=== PATIENT | male | born 1965 | race African-American/Black ===

== ENCOUNTER 2021-05-04 12:12 | Emergency (ER) | payer OTHER ==
[2021-05-04 12:35] VITALS: TEMP 98; BMI 27.0
[2021-05-04 13:43] LABS: BASO % 0.7 % (0-2.0); EOS % 2.3 % (0-4.5); HEMATOCRIT 41.8 % (35.4-49); HEMOGLOBIN 13.2 GM/dL (11.7-16.9); LYMPH % 24.4 % (8-40); MCH 26.5 pg (25.7-33.7); MCHC 31.6 g/dl (32.0-35.9); MEAN CELL VOLUME 83.9 fl (80-96); MEAN PLT VOLUME 7.3 fl (7.5-11.1); NEUT % 65.6 % (42.8-82.8); PLATELET COUNT 187 10^3/uL (134-434); RBC 4.99 M/mm3 (4.00-5.60); RDW 15.4 % (11.9-15.9); WHITE BLOOD COUNT 8.6 K/mm3 (4.0-10.0)
[2021-05-04 13:50] LABS: INR 1.29 (0.83-1.09); PROTHROMBIN TIME (PATIENT) 14.5 SEC (9.7-13.0)
[2021-05-04 14:04] LABS: CHLORIDE 112 mmol/L (98-107); SODIUM 144 mmol/L (136-145)
[2021-05-04 14:05] LABS: CALCIUM 8.9 mg/dL (8.5-10.1)
[2021-05-04 14:06] LABS: ALBUMIN 3.3 g/dl (3.4-5.0); BLOOD UREA NITROGEN 17.7 mg/dL (7-18); LIPASE 104 U/L (73-393)
[2021-05-04 14:07] LABS: GLUCOSE,RANDOM 99 mg/dL (74-106)
[2021-05-04 14:09] LABS: CREATININE 1.2 mg/dL (0.55-1.3); SGOT/AST 24 U/L (15-37); SGPT/ALT 26 U/L (13-61)
[2021-05-04 14:10] LABS: BILIRUBIN,TOTAL 1.2 mg/dL (0.2-1)
[2021-05-04 14:12] LABS: ALK PHOS 105 U/L (45-117)
[2021-05-04 14:31] VITALS: BP 168/90; PULSE 60
[2021-05-04 14:36] LABS: ANION GAP 2 MMOL/L (8-16); CO2 30 mmol/L (21-32)
== END 2021-05-04 15:39 | disposition home or self-care (01) ==
LOC: JER 12:12
DX: I10 Essential (primary) hypertension (principal)
CPT/HCPCS: 36415; 71046-TC-FY; 80053; 82550; 82553; 83690; 84484; 85025; 85610; 93005; 93010; 99285-25

== ENCOUNTER 2022-01-26 18:59 | Inpatient (IN) | payer OTHER ==
[2022-01-26 19:11] VITALS: BMI 27.1
[2022-01-26] MEDS ORDERED: ACETAMINOPHEN 1000 MG/100 ML BAG IVPB ONE (22:29)
[2022-01-26] MEDS ORDERED: VANCOMYCIN 1 GM in D5W (PRE-DOCKED) 1,000 MG/250 ML IVPB ONE (22:33)
[2022-01-26] MEDS ORDERED: PIPERACILLIN/TAZOB 4.5 GM 4.5 GM in DEXTROSE 5%-WATER 100 ML IVPB ONE (22:33)
[2022-01-26] MEDS ORDERED: ACETAMINOPHEN INJECTION 100 ML IVPB ONE (22:44)
[2022-01-26] MEDS ORDERED: PIPERACILLIN/TAZOB 4.5 GM 4.5 GM/100 ML BAG IVPB ONE (22:44)
[2022-01-26] MEDS ORDERED: VANCOMYCIN/WATER FOR INJ (PEG) 1,000 MG/200 ML BAG IVPB ONE (22:44)
[2022-01-26 22:45] LABS: VENOUS BASE EXCESS -0.8 mmol/L (-2-2); VENOUS O2 SATURATION 56.7 % (70-80); VENOUS PCO2 40.9 mmHg (38-52); VENOUS PH 7.389 (7.310-7.410)
[2022-01-26 22:48] LABS: BASO % 0.4 % (0-2.0); EOS % 0.2 % (0-4.5); HEMATOCRIT 34.5 % (35.4-49); HEMOGLOBIN 11.5 GM/dL (11.7-16.9); MCH 28.2 pg (25.7-33.7); MCHC 33.4 g/dl (32.0-35.9); MEAN CELL VOLUME 84.4 fl (80-96); MONO % 16.5 % (3.8-10.2); NEUT % 63.9 % (42.8-82.8); PLATELET COUNT 151 10^3/uL (134-434); RBC 4.09 M/mm3 (4.00-5.60); RDW 13.9 % (11.9-15.9); WHITE BLOOD COUNT 5.4 K/mm3 (4.0-10.0)
[2022-01-26 22:56] LABS: INR 1.34 (0.83-1.09); PROTHROMBIN TIME (PATIENT) 15.4 SEC (9.7-13.0)
[2022-01-26 23:11] LABS: CALCIUM 8.5 mg/dL (8.5-10.1)
[2022-01-26 23:12] LABS: ALBUMIN 3.5 g/dl (3.4-5.0); BLOOD UREA NITROGEN 28.4 mg/dL (7-18)
[2022-01-26 23:15] LABS: CREATININE 1.6 mg/dL (0.55-1.3)
[2022-01-26 23:17] LABS: BILIRUBIN,TOTAL 1.1 mg/dL (0.2-1); TOT PROT 6.8 g/dl (6.4-8.2)
[2022-01-27] MEDS ORDERED: POTASSIUM CHLORIDE TABS 20 MEQ TABLET.ER (FP) PO ONE ×2 (00:04→02:09)
[2022-01-27] MEDS ORDERED: ASPIRIN 81 MG CHEWABLE TABLETS PO ONE (00:06)
[2022-01-27] MEDS ORDERED: ASPIRIN 81 MG CHEWABLE TABLETS ONE (02:10)
[2022-01-27 03:08] LABS: EPI CELLS 1 /uL (0-25.1); HYALINE CASTS 0 /uL (0-3.1); PH,URINE 5.5 (5.0-8.0); URINE APPEARANCE CLEAR; URINE BACTERIA 4 /uL (0-1359); URINE BILIRUBIN NEGATIVE (NEGATIVE); URINE COLOR YELLOW; URINE GLUCOSE (UA) NEGATIVE (NEGATIVE); URINE KETONE NEGATIVE (NEGATIVE); URINE LEUK ESTERASE NEGATIVE (NEGATIVE); URINE NITRITE NEGATIVE (NEGATIVE); URINE PROTEIN NEGATIVE (NEGATIVE); URINE RBC 240 /uL (0-23.9); URINE UROBILINOGEN 0.2 mg/dL (0.2-1.0); URINE WBC 4 /uL (0-25.8)
[2022-01-27 06:20] LABS: BILIRUBIN,DIRECT 0.3 mg/dL (0.0-0.2)
[2022-01-27] MEDS ORDERED: THIAMINE HCL 200 MG/2 ML VIAL IVPB ONE (06:43)
[2022-01-27] MEDS ORDERED: GABAPENTIN 100 MG CAPSULE ONE ×3 (06:56→21:47)
[2022-01-27] MEDS ORDERED: THIAMINE HCL 200 MG/2 ML VIAL ONE (06:56)
[2022-01-27] MEDS: GABAPENTIN 100 MG CAPSULE PO SCH ×3 (06:58→21:54)
[2022-01-27 08:12] LABS: HEMATOCRIT 33.2 % (35.4-49); MCH 28.4 pg (25.7-33.7); MCHC 33.1 g/dl (32.0-35.9); MEAN CELL VOLUME 85.7 fl (80-96); MEAN PLT VOLUME 7.6 fl (7.5-11.1); PLATELET COUNT 142 10^3/uL (134-434); RBC 3.87 M/mm3 (4.00-5.60); RDW 14.2 % (11.9-15.9)
[2022-01-27 09:10] LABS: CALCIUM 8.3 mg/dL (8.5-10.1)
[2022-01-27 09:11] LABS: ALBUMIN 3.1 g/dl (3.4-5.0); MAGNESIUM 1.8 mg/dL (1.8-2.4)
[2022-01-27 09:14] LABS: CREATININE 1.7 mg/dL (0.55-1.3)
[2022-01-27 09:15] LABS: BILIRUBIN,TOTAL 1.3 mg/dL (0.2-1); TOT PROT 6.1 g/dl (6.4-8.2)
[2022-01-27] MEDS ORDERED: POLYETHYLENE GLYCOL (HEALTHYLAX) 3350 17 GM PACKET ONE (09:56)
[2022-01-27] MEDS ORDERED: PANTOPRAZOLE 40 MG TABLET PO ONE (09:57)
[2022-01-27] MEDS ORDERED: APIXABAN 5 MG TABLET ONE ×2 (09:57→21:46)
[2022-01-27] MEDS ORDERED: FOLIC ACID 1 MG TABLET (FP) ONE (09:57)
[2022-01-27] MEDS ORDERED: CHOLECALCIFEROL (VIT D3) 1,000 UNIT (25 MCG) TABLET ONE (09:57)
[2022-01-27] MEDS ORDERED: LOSARTAN POTASSIUM 50 MG TABLET PO SCH (10:00)
[2022-01-27] MEDS ORDERED: HYDROCHLOROTHIAZIDE 25 MG TABLET (FP) PO SCH (10:00)
[2022-01-27] MEDS ORDERED: amLODIPine BESYLATE 10 MG TABLET (FP) PO SCH (10:00)
[2022-01-27] MEDS ORDERED: ACETAMINOPHEN INJECTION 100 ML IVPB ONE (10:40)
[2022-01-27] MEDS ORDERED: FOLIC ACID INJECTION - 1 MG, THIAMINE HCL 100 MG, MULTIVIT INJECTION ADULT 10 ML in SOD... IVPB ONE (10:45)
[2022-01-27] MEDS: MULTIVIT-MINERALS ORAL LIQUID PO SCH (10:50)
[2022-01-27] MEDS: APIXABAN 5 MG TABLET PO SCH ×2 (10:51→21:54)
[2022-01-27] MEDS: PANTOPRAZOLE 40 MG TABLET PO SCH (10:51)
[2022-01-27] MEDS: POLYETHYLENE GLYCOL (HEALTHYLAX) 3350 17 GM PACKET PO SCH (10:51)
[2022-01-27] MEDS: CHOLECALCIFEROL (VIT D3) 1,000 UNIT (25 MCG) TABLET PO SCH (10:51)
[2022-01-27] MEDS: FOLIC ACID 1 MG TABLET (FP) PO SCH (10:51)
[2022-01-27] MEDS: ACETAMINOPHEN 1000 MG/100 ML BAG IVPB PRN (10:55)
[2022-01-27] MEDS ORDERED: DOCUSATE SODIUM 100 MG CAPSULE (FP) PO ONE ×2 (15:06→21:46)
[2022-01-27] MEDS: DOCUSATE SODIUM 100 MG CAPSULE (FP) PO SCH ×2 (15:23→21:54)
[2022-01-27] MEDS ORDERED: REMDESIVIR 200 MG in SODIUM CHLORIDE 250 ML IVPB ONE (18:00)
[2022-01-27] MEDS ORDERED: DEXAMETHASONE 4 MG TABLET (FP) ONE (18:02)
[2022-01-27] MEDS ORDERED: CEFTRIAXONE 1 GM/50 ML BAG ONE (18:02)
[2022-01-27] MEDS: DEXAMETHASONE 4 MG TABLET (FP) PO SCH (18:23)
[2022-01-27] MEDS: CEFTRIAXONE 1 GM in DEXTROSE 5%-WATER - 50 ML IVPB SCH (18:24)
[2022-01-27 18:47] LABS: EPI CELLS 1 /uL (0-25.1); HYALINE CASTS 0 /uL (0-3.1); PH,URINE 5.5 (5.0-8.0); URINE APPEARANCE CLEAR; URINE BACTERIA 4 /uL (0-1359); URINE BILIRUBIN NEGATIVE (NEGATIVE); URINE COLOR YELLOW; URINE GLUCOSE (UA) NEGATIVE (NEGATIVE); URINE KETONE NEGATIVE (NEGATIVE); URINE LEUK ESTERASE NEGATIVE (NEGATIVE); URINE NITRITE NEGATIVE (NEGATIVE); URINE PROTEIN TRACE (NEGATIVE); URINE RBC 2357 /uL (0-23.9); URINE UROBILINOGEN 0.2 mg/dL (0.2-1.0); URINE WBC 5 /uL (0-25.8)
[2022-01-27] MEDS ORDERED: SENNOSIDES 8.6MG TABLET (FP) PO ONE (21:46)
[2022-01-27] MEDS ORDERED: ATORVASTATIN CA 80 MG TABLET (FP) ONE (21:46)
[2022-01-27] MEDS: ATORVASTATIN CA 80 MG TABLET (FP) PO SCH (21:54)
[2022-01-27] MEDS: SENNOSIDES 8.6MG TABLET (FP) PO SCH (21:55)
[2022-01-28] MEDS: ACETAMINOPHEN 1000 MG/100 ML BAG IVPB PRN ×2 (00:21→07:37)
[2022-01-28] MEDS: DOCUSATE SODIUM 100 MG CAPSULE (FP) PO SCH ×3 (06:18→22:13)
[2022-01-28] MEDS: GABAPENTIN 100 MG CAPSULE PO SCH ×3 (06:18→22:13)
[2022-01-28 09:22] VITALS: RESP 16
[2022-01-28] MEDS: FOLIC ACID 1 MG TABLET (FP) PO SCH (09:59)
[2022-01-28] MEDS: CEFTRIAXONE 1 GM in DEXTROSE 5%-WATER - 50 ML IVPB SCH (09:59)
[2022-01-28] MEDS: DEXAMETHASONE 4 MG TABLET (FP) PO SCH (10:00)
[2022-01-28] MEDS: APIXABAN 5 MG TABLET PO SCH ×2 (10:00→22:13)
[2022-01-28] MEDS: PANTOPRAZOLE 40 MG TABLET PO SCH (10:02)
[2022-01-28] MEDS: CHOLECALCIFEROL (VIT D3) 1,000 UNIT (25 MCG) TABLET PO SCH (10:02)
[2022-01-28] MEDS: MULTIVIT-MINERALS ORAL LIQUID PO SCH (10:02)
[2022-01-28] MEDS: POLYETHYLENE GLYCOL (HEALTHYLAX) 3350 17 GM PACKET PO SCH (10:03)
[2022-01-28] MEDS: REMDESIVIR 100 MG in SODIUM CHLORIDE 250 ML IVPB SCH (10:30)
[2022-01-28] MEDS ORDERED: DEXAMETHASONE 4 MG TABLET (FP) PO SCH (11:10)
[2022-01-28] MEDS: LORazepam 2 MG/ML SDV VIAL IVPUSH SCH ×2 (11:15→14:00)
[2022-01-28] MEDS: SENNOSIDES 8.6MG TABLET (FP) PO SCH (22:13)
[2022-01-28] MEDS: ATORVASTATIN CA 80 MG TABLET (FP) PO SCH (22:13)
[2022-01-29] MEDS: DOCUSATE SODIUM 100 MG CAPSULE (FP) PO SCH (05:22)
[2022-01-29] MEDS: GABAPENTIN 100 MG CAPSULE PO SCH (05:22)
[2022-01-29 07:04] LABS: BASO % 0.2 % (0-2.0); HEMATOCRIT 36.7 % (35.4-49); LYMPH % 10.2 % (8-40); MCHC 32.8 g/dl (32.0-35.9); MEAN CELL VOLUME 85.3 fl (80-96); MEAN PLT VOLUME 7.4 fl (7.5-11.1); MONO % 7.1 % (3.8-10.2); NEUT % 82.5 % (42.8-82.8); PLATELET COUNT 212 10^3/uL (134-434); RDW 13.9 % (11.9-15.9); WHITE BLOOD COUNT 10.2 K/mm3 (4.0-10.0)
[2022-01-29 07:32] LABS: ALBUMIN 3.6 g/dl (3.4-5.0); BLOOD UREA NITROGEN 22.8 mg/dL (7-18)
[2022-01-29 07:35] LABS: CREATININE 1.2 mg/dL (0.55-1.3)
[2022-01-29 07:37] LABS: BILIRUBIN,TOTAL 1.4 mg/dL (0.2-1); TOT PROT 7.3 g/dl (6.4-8.2)
[2022-01-29 09:17] VITALS: BP 136/73; PULSE 58; TEMP 97.8
[2022-01-29] MEDS: FOLIC ACID 1 MG TABLET (FP) PO SCH (10:04)
[2022-01-29] MEDS: CHOLECALCIFEROL (VIT D3) 1,000 UNIT (25 MCG) TABLET PO SCH (10:04)
[2022-01-29] MEDS: PANTOPRAZOLE 40 MG TABLET PO SCH (10:04)
[2022-01-29] MEDS: APIXABAN 5 MG TABLET PO SCH (10:04)
[2022-01-29] MEDS: POLYETHYLENE GLYCOL (HEALTHYLAX) 3350 17 GM PACKET PO SCH (10:05)
[2022-01-29] MEDS: REMDESIVIR 100 MG in SODIUM CHLORIDE 250 ML IVPB SCH (10:07)
[2022-01-29] MEDS: MULTIVIT-MINERALS ORAL LIQUID PO SCH (10:07)
== END 2022-01-29 14:05 | disposition home or self-care (01) | DRG 178 ==
LOC: JER 18:59 → JERBED 01-27 00:11 → J4W 01-27 22:28
PROVIDERS: ADMIT Hospitalist; ATTEND Internal Medicine
PROC: XW033E5 Introduction of Remdesivir Anti-infective into Peripheral Vein, Percutaneous Approach, New Technology Group 5 (ICD-10-PCS; principal; 2022-01-27)
PROC: 3E0333Z Introduction of Anti-inflammatory into Peripheral Vein, Percutaneous Approach (ICD-10-PCS; 2022-01-27)
DX: U07.1 COVID-19 (principal); I13.0 Hypertensive heart and chronic kidney disease with heart failure and stage 1 through stage 4 chronic kidney disease, or unspecified chronic kidney disease; F41.9 Anxiety disorder, unspecified; I44.7 Left bundle-branch block, unspecified; F14.10 Cocaine abuse, uncomplicated; F12.10 Cannabis abuse, uncomplicated; F10.10 Alcohol abuse, uncomplicated; N18.9 Chronic kidney disease, unspecified; E87.6 Hypokalemia; I50.9 Heart failure, unspecified; D64.9 Anemia, unspecified; R45.1 Restlessness and agitation; E78.5 Hyperlipidemia, unspecified; R50.9 Fever, unspecified; R09.02 Hypoxemia; Z86.73 Personal history of transient ischemic attack (TIA), and cerebral infarction without residual deficits; Z85.118 Personal history of other malignant neoplasm of bronchus and lung
CPT/HCPCS: 36415; 71045-TC-FY; 72125-TC; 76775-TC; 80053; 81003; 82248; 82607; 82728; 82746; 82803; 83540; 83550; 83605; 83615; 83735; 84100; 84466; 84484; 85025; 85027; 85045; 85610; 85730; 86780; 86850; 86900; 86901; 87040; 87086; 90853; 93005; 93010; 99285-25; C9399; C9803-CS; U0003; U0005

== ENCOUNTER 2023-01-13 17:40 | Observation (INO) | payer OTHER ==
[2023-01-13] MEDS ORDERED: ASPIRIN 81 MG CHEWABLE TABLETS PO ONE (18:24)
[2023-01-13] MEDS ORDERED: ASPIRIN 81 MG CHEWABLE TABLETS ONE (18:33)
[2023-01-13 18:38] LABS: BASO % 0.6 % (0-2.0); EOS % 0.9 % (0-4.5); HEMATOCRIT 37.1 % (35.4-49); HEMOGLOBIN 11.7 GM/dL (11.7-16.9); LYMPH % 18.8 % (8-40); MCH 23.6 pg (25.7-33.7); MCHC 31.6 g/dl (32.0-35.9); MEAN CELL VOLUME 74.6 fl (80-96); MEAN PLT VOLUME 6.9 fl (7.5-11.1); NEUT % 72.7 % (42.8-82.8); PLATELET COUNT 302 10^3/uL (134-434); RBC 4.97 M/mm3 (4.00-5.60); RDW 18.5 % (11.9-15.9); WHITE BLOOD COUNT 8.3 K/mm3 (4.0-10.0)
[2023-01-13 18:45] LABS: INR 1.36 (0.83-1.09); PROTHROMBIN TIME (PATIENT) 15.7 SEC (9.7-13.0)
[2023-01-13 18:48] LABS: ACTIVATED PTT 38.3 SECONDS (25.2-36.5)
[2023-01-13 18:57] LABS: POTASSIUM 3.9 mmol/L (3.5-5.1)
[2023-01-13 18:59] LABS: CALCIUM 9.7 mg/dL (8.5-10.1)
[2023-01-13 19:00] LABS: ALBUMIN 3.1 g/dl (3.4-5.0); BLOOD UREA NITROGEN 15.3 mg/dL (7-18)
[2023-01-13 19:03] LABS: CREATININE 1.1 mg/dL (0.55-1.3)
[2023-01-13 19:04] LABS: BILIRUBIN,TOTAL 1.7 mg/dL (0.2-1); TOT PROT 7.6 g/dl (6.4-8.2)
[2023-01-13 22:58] LABS: COCAINE, UR NEGATIVE (NEGATIVE); URINE AMPHETAMINES NEGATIVE (NEGATIVE)
[2023-01-13 22:59] LABS: METHADONE, UR NEGATIVE (NEGATIVE); PHENCYCLIDINE,URINE NEGATIVE (NEGATIVE); URINE BARBITURATES NEGATIVE (NEGATIVE)
[2023-01-13 23:01] LABS: OPIATES, URI NEGATIVE (NEGATIVE); URINE BENZODIAZEPINES NEGATIVE (NEGATIVE)
[2023-01-14] MEDS ORDERED: methylPREDNISolone NA SUCC 40 MG/1 ML VIAL IVPUSH SCH (03:00)
[2023-01-14 03:58] VITALS: BMI 23.6
[2023-01-14] MEDS ORDERED: ACETAMINOPHEN 325 MG TABLET (FP) PO PRN (06:47)
[2023-01-14] MEDS ORDERED: ACETAMINOPHEN 500 MG TABLET (FP) PO ONE (07:15)
[2023-01-14] MEDS: INSULIN (NOVOLOG) ASPART 100 UNITS/ML 10ML VIAL SQ SCH ×4 (07:41→21:37)
[2023-01-14] MEDS: ALBUTEROL SO4 2.5/IPRATROPIUM 0.5 INH SOL 3 ML VIAL.NEB. NEB SCH ×4 (08:10→20:32)
[2023-01-14] MEDS: LIDOCAINE 5% TOPICAL PATCH TP SCH (08:29)
[2023-01-14] MEDS ORDERED: AZITHROMYCIN 250 MG TABLET PO ONE (08:30)
[2023-01-14] MEDS: PANTOPRAZOLE SODIUM 40 MG VIAL IVPUSH SCH (09:11)
[2023-01-14] MEDS: predniSONE 20 MG TABLET (UD) PO SCH (09:11)
[2023-01-14] MEDS: ASPIRIN COATED 81 MG TABLET.EC PO SCH (09:11)
[2023-01-14] MEDS: ENOXAPARIN NA (PORCINE) 40 MG/0.4 ML DISP.SYRIN SQ SCH (09:11)
[2023-01-14] MEDS: LOSARTAN POTASSIUM 25 MG TABLET PO SCH (09:12)
[2023-01-14] MEDS: CARVEDILOL 25 MG TABLET (FP) PO SCH ×2 (09:12→21:33)
[2023-01-14 09:36] LABS: BASO % 0.2 % (0-2.0); EOS % 0.1 % (0-4.5); HEMATOCRIT 36.6 % (35.4-49); HEMOGLOBIN 11.4 GM/dL (11.7-16.9); LYMPH % 8.6 % (8-40); MCH 23.7 pg (25.7-33.7); MCHC 31.2 g/dl (32.0-35.9); MEAN CELL VOLUME 76.1 fl (80-96); MEAN PLT VOLUME 7.7 fl (7.5-11.1); MONO % 1.1 % (3.8-10.2); PLATELET COUNT 300 10^3/uL (134-434); RBC 4.81 M/mm3 (4.00-5.60); RDW 18.1 % (11.9-15.9); WHITE BLOOD COUNT 5.8 K/mm3 (4.0-10.0)
[2023-01-14 09:44] LABS: POTASSIUM 3.9 mmol/L (3.5-5.1)
[2023-01-14 10:02] LABS: BLOOD UREA NITROGEN 19.1 mg/dL (7-18)
[2023-01-14 10:03] LABS: ALBUMIN 2.8 g/dl (3.4-5.0)
[2023-01-14 10:05] LABS: CREATININE 1.2 mg/dL (0.55-1.3); PHOSPHOROUS 2.6 mg/dL (2.5-4.9)
[2023-01-14 10:07] LABS: TOT PROT 6.9 g/dl (6.4-8.2)
[2023-01-14 10:09] LABS: BILIRUBIN,TOTAL 1.4 mg/dL (0.2-1)
[2023-01-14] MEDS ORDERED: INSULIN (NOVOLOG) ASPART 100 UNITS/ML 10ML VIAL ONE (21:42)
[2023-01-14] MEDS ORDERED: LIDOCAINE PATCH REMOVAL MC SCH (22:00)
[2023-01-14] MEDS ORDERED: ATORVASTATIN CA 80 MG TABLET (FP) PO SCH (22:00)
[2023-01-15] MEDS: INSULIN (NOVOLOG) ASPART 100 UNITS/ML 10ML VIAL SQ SCH ×2 (06:19→11:35)
[2023-01-15] MEDS: ALBUTEROL SO4 2.5/IPRATROPIUM 0.5 INH SOL 3 ML VIAL.NEB. NEB SCH ×3 (08:17→15:30)
[2023-01-15 08:20] LABS: HEMATOCRIT 32.8 % (35.4-49); MCH 23.3 pg (25.7-33.7); MCHC 30.6 g/dl (32.0-35.9); MEAN CELL VOLUME 76.1 fl (80-96); MEAN PLT VOLUME 7.7 fl (7.5-11.1); PLATELET COUNT 280 10^3/uL (134-434); RBC 4.31 M/mm3 (4.00-5.60); WHITE BLOOD COUNT 13.3 K/mm3 (4.0-10.0)
[2023-01-15 08:37] LABS: BLOOD UREA NITROGEN 19.8 mg/dL (7-18); MAGNESIUM 1.9 mg/dL (1.8-2.4)
[2023-01-15 08:39] LABS: PHOSPHOROUS 3.7 mg/dL (2.5-4.9)
[2023-01-15] MEDS ORDERED: AZITHROMYCIN 250 MG TABLET PO SCH (10:00)
[2023-01-15] MEDS ORDERED: OSELTAMIVIR PHOSPHATE 75 MG CAPSULE PO SCH (10:00)
[2023-01-15] MEDS: ASPIRIN COATED 81 MG TABLET.EC PO SCH (10:30)
[2023-01-15] MEDS: predniSONE 20 MG TABLET (UD) PO SCH (10:30)
[2023-01-15] MEDS: PANTOPRAZOLE SODIUM 40 MG VIAL IVPUSH SCH (10:30)
[2023-01-15] MEDS: LIDOCAINE 5% TOPICAL PATCH TP SCH (10:30)
[2023-01-15] MEDS: LOSARTAN POTASSIUM 25 MG TABLET PO SCH (10:30)
[2023-01-15] MEDS: CARVEDILOL 25 MG TABLET (FP) PO SCH (10:30)
[2023-01-15] MEDS: ENOXAPARIN NA (PORCINE) 40 MG/0.4 ML DISP.SYRIN SQ SCH (11:00)
[2023-01-15 15:00] VITALS: BP 135/78; PULSE 69; RESP 19; TEMP 97.9
== END 2023-01-15 15:56 | disposition home or self-care (01) ==
LOC: JER 17:40 → JERBED 19:49 → J4W 23:55
PROVIDERS: ADMIT Internal Medicine; ATTEND Internal Medicine
PROC: 3E023GC Introduction of Other Therapeutic Substance into Muscle, Percutaneous Approach (ICD-10-PCS; principal; 2023-01-13)
PROC: 3E033GC Introduction of Other Therapeutic Substance into Peripheral Vein, Percutaneous Approach (ICD-10-PCS; 2023-01-13)
DX: J10.1 Influenza due to other identified influenza virus with other respiratory manifestations (principal); I11.0 Hypertensive heart disease with heart failure; I50.30 Unspecified diastolic (congestive) heart failure; F41.9 Anxiety disorder, unspecified; R07.89 Other chest pain; Z95.1 Presence of aortocoronary bypass graft; Z85.118 Personal history of other malignant neoplasm of bronchus and lung; K92.9 Disease of digestive system, unspecified; Z86.73 Personal history of transient ischemic attack (TIA), and cerebral infarction without residual deficits; F17.210 Nicotine dependence, cigarettes, uncomplicated
CPT/HCPCS: 36415; 71045-TC-FY; 71275-TC; 80048; 80053; 80307; 82962; 83036; 83735; 83880; 84100; 84484; 85025; 85027; 85379; 85610; 85730; 86359; 86360; 86850; 86900; 86901; 87536; 87635; 87804; 93005; 93010; 93306-TC; 94640; 96372; 96374; 96376; 99285-25; G0378; Q9967

== ENCOUNTER 2023-08-08 15:17 | Emergency (ER) | payer OTHER ==
[2023-08-08 16:04] VITALS: BP 90/60; PULSE 85; RESP 18; TEMP 98; BMI 26.4
[2023-08-08] MEDS ORDERED: ACETAMINOPHEN INJECTION 100 ML IVPB ONE (18:27)
[2023-08-08] MEDS ORDERED: ONDANSETRON 4 MG/2 ML VIAL ONE (18:27)
[2023-08-08] MEDS ORDERED: FAMOTIDINE 20 MG/50 ML IVPB 20 MG/50 ML MG IVPB ONE (18:28)
[2023-08-08] MEDS: ONDANSETRON 4 MG/2 ML VIAL IVPUSH ONE (18:39)
[2023-08-08] MEDS: ACETAMINOPHEN 1000 MG/100 ML BAG IVPB ONE (18:39)
[2023-08-08] MEDS: SODIUM CHLORIDE 1,000 ML IV STA (18:39)
[2023-08-08] MEDS: FAMOTIDINE 20 MG/50 ML IVPB 20 MG/50 ML MG IVPB ONE (18:39)
[2023-08-08 18:47] LABS: BASO % 0.7 % (0-2.0); EOS % 1.5 % (0-4.5); HEMATOCRIT 41.9 % (35.4-49); HEMOGLOBIN 13.5 GM/dL (11.7-16.9); LYMPH % 22.8 % (8-40); MCH 25.7 pg (25.7-33.7); MCHC 32.3 g/dl (32.0-35.9); MEAN CELL VOLUME 79.7 fl (80-96); MEAN PLT VOLUME 7.4 fl (7.5-11.1); MONO % 8.1 % (3.8-10.2); NEUT % 66.9 % (42.8-82.8); PLATELET COUNT 269 10^3/uL (134-434); RBC 5.25 M/mm3 (4.00-5.60); RDW 17.8 % (11.9-15.9)
[2023-08-08 18:56] LABS: INR 1.12 (0.83-1.09)
[2023-08-08 18:59] LABS: ACTIVATED PTT 33.5 SECONDS (25.2-36.5); ALBUMIN 3.1 g/dl (3.4-5.0); BLOOD UREA NITROGEN 31.3 mg/dL (7-18); CALCIUM 9.8 mg/dL (8.5-10.1); MAGNESIUM 2.4 mg/dL (1.8-2.4)
[2023-08-08 19:02] LABS: CREATININE 1.4 mg/dL (0.55-1.3)
[2023-08-08 19:04] LABS: BILIRUBIN,TOTAL 0.8 mg/dL (0.2-1); TOT PROT 7.5 g/dl (6.4-8.2)
== END 2023-08-08 23:29 | disposition left against medical advice (07) ==
LOC: JER 15:17
PROC: 3E033GC Introduction of Other Therapeutic Substance into Peripheral Vein, Percutaneous Approach (ICD-10-PCS; principal; 2023-08-08)
PROC: 3E033NZ Introduction of Analgesics, Hypnotics, Sedatives into Peripheral Vein, Percutaneous Approach (ICD-10-PCS; 2023-08-08)
PROC: 3E033GC Introduction of Other Therapeutic Substance into Peripheral Vein, Percutaneous Approach (ICD-10-PCS; 2023-08-08)
PROC: 3E0337Z Introduction of Electrolytic and Water Balance Substance into Peripheral Vein, Percutaneous Approach (ICD-10-PCS; 2023-08-08)
DX: R10.9 Unspecified abdominal pain (principal); R11.2 Nausea with vomiting, unspecified; R53.1 Weakness; R42 Dizziness and giddiness; I95.9 Hypotension, unspecified; Z20.822 Contact with and (suspected) exposure to COVID-19
CPT/HCPCS: 0241U-QW; 36415; 71275-TC; 74174-TC; 80053; 83605; 83690; 83735; 84484; 85025; 85610; 85730; 93005; 93010; 99285-25; J0131; Q9967

== ENCOUNTER 2023-08-17 12:46 | Inpatient (IN) | payer OTHER ==
[2023-08-17 13:38] VITALS: BMI 20.9
[2023-08-17] MEDS ORDERED: DICYCLOMINE HCL 10 MG CAPSULE PO PRN (14:34)
[2023-08-17] MEDS ORDERED: LOPERAMIDE HCL 2 MG CAPSULE PO PRN (14:34)
[2023-08-17] MEDS ORDERED: MAGNESIUM HYDROX 2400MG/30ML ORAL SUSPENSION 30 ML CUP PO PRN (14:34)
[2023-08-17] MEDS ORDERED: BISMUTH SUBSALICYLATE 262 MG/15 ML BTL PO PRN (14:34)
[2023-08-17] MEDS ORDERED: NICOTINE POLACRILEX 2 MG GUM BUC PRN (14:34)
[2023-08-17] MEDS ORDERED: POLYETHYLENE GLYCOL (HEALTHYLAX) 3350 17 GM PACKET PO PRN (14:34)
[2023-08-17] MEDS ORDERED: P-EPHED 60MG/TRIPROLIDI 2.5MG TABLET PO PRN (14:34)
[2023-08-17] MEDS ORDERED: BENZOCAINE/MENTHOL (CHLORASEPTIC ) LOZENGE MM PRN (14:34)
[2023-08-17] MEDS ORDERED: BENZONATATE 200 MG CAPSULE PO PRN (14:34)
[2023-08-17] MEDS ORDERED: MAG HYDROX/AL HYDROX/SIMETH 30 ML UNIT-DOSE CUP PO PRN (14:34)
[2023-08-17] MEDS ORDERED: guaiFENesin 600 MG TABLET.ER (FP) PO PRN (14:34)
[2023-08-17] MEDS ORDERED: METHOCARBAMOL 500 MG TABLET PO PRN (14:34)
[2023-08-17] MEDS: THIAMINE HCL 100 MG TABLET (FP) PO SCH (22:34)
[2023-08-17] MEDS: MELATONIN 5 MG TABLETS PO SCH (22:34)
[2023-08-18] MEDS: TOPIRAMATE 25 MG TABLET PO SCH (10:28)
[2023-08-18] MEDS: PRENATAL VITAMINS W/ FOLIC ACID TABLET (FP) PO SCH (10:29)
[2023-08-18 10:35] LABS: POTASSIUM 3.4 mmol/L (3.5-5.1)
[2023-08-18 10:36] LABS: HEMATOCRIT 38.5 % (35.4-49); HEMOGLOBIN 12.1 GM/dL (11.7-16.9); MCH 25.3 pg (25.7-33.7); MCHC 31.4 g/dl (32.0-35.9); MEAN CELL VOLUME 80.5 fl (80-96); MEAN PLT VOLUME 7.5 fl (7.5-11.1); PLATELET COUNT 258 10^3/uL (134-434); RBC 4.78 M/mm3 (4.00-5.60); RDW 17.3 % (11.9-15.9)
[2023-08-18 10:41] LABS: ALBUMIN 2.6 g/dl (3.4-5.0); BLOOD UREA NITROGEN 20.3 mg/dL (7-18)
[2023-08-18 10:43] LABS: CREATININE 1.1 mg/dL (0.55-1.3)
[2023-08-18 10:46] LABS: BILIRUBIN,TOTAL 0.8 mg/dL (0.2-1); TOT PROT 6.1 g/dl (6.4-8.2)
[2023-08-18 11:03] LABS: CALCIUM 8.2 mg/dL (8.5-10.1)
[2023-08-18] MEDS: IBUPROFEN 400 MG TABLET (FP) PO PRN (13:07)
[2023-08-18] MEDS ORDERED: ALBUTEROL SO4 HFA INHALER IH PRN (16:35)
[2023-08-18] MEDS: LOSARTAN POTASSIUM 25 MG TABLET PO SCH (17:01)
[2023-08-18] MEDS: ASPIRIN COATED 81 MG TABLET.EC PO SCH (17:01)
[2023-08-18] MEDS: ATORVASTATIN CA 80 MG TABLET (FP) PO SCH (22:13)
[2023-08-18] MEDS: CARVEDILOL 25 MG TABLET (FP) PO SCH (22:14)
[2023-08-19] MEDS: ACETAMINOPHEN 325 MG TABLET (FP) PO PRN (05:50)
[2023-08-19] MEDS: diazePAM 5 MG TABLET PO SCH ×2 (14:28→22:18)
[2023-08-20] MEDS: diazePAM 5 MG TABLET PO SCH (05:19)
[2023-08-20] MEDS ORDERED: diazePAM 5 MG TABLET PO SCH (06:00)
[2023-08-20] MEDS: ONDANSETRON *ODT* 4 MG TABLET SL PRN (10:25)
[2023-08-20 10:49] LABS: POTASSIUM 3.9 mmol/L (3.5-5.1)
[2023-08-20 10:58] LABS: ALBUMIN 2.4 g/dl (3.4-5.0); BLOOD UREA NITROGEN 16.8 mg/dL (7-18); CALCIUM 8.2 mg/dL (8.5-10.1)
[2023-08-20 20:54] VITALS: RESP 17
[2023-08-21] MEDS: diazePAM 5 MG TABLET PO ONE (05:23)
[2023-08-21] MEDS ORDERED: diazePAM 5 MG TABLET PO ONE (06:00)
[2023-08-21 06:23] VITALS: BP 137/87; PULSE 66
[2023-08-21 07:09] VITALS: TEMP 97.6
== END 2023-08-21 09:30 | disposition other institution (70) | DRG 897 ==
LOC: YASAS 12:46 → Y6N 16:27
PROVIDERS: ADMIT Allergy & Immunology; ATTEND Surgery
PROC: HZ2ZZZZ Detoxification Services for Substance Abuse Treatment (ICD-10-PCS; principal; 2023-08-17)
DX: F10.230 Alcohol dependence with withdrawal, uncomplicated (principal); F14.20 Cocaine dependence, uncomplicated; F12.20 Cannabis dependence, uncomplicated; F17.210 Nicotine dependence, cigarettes, uncomplicated; G62.9 Polyneuropathy, unspecified; I10 Essential (primary) hypertension; I25.2 Old myocardial infarction; I73.9 Peripheral vascular disease, unspecified; J45.909 Unspecified asthma, uncomplicated; Z86.73 Personal history of transient ischemic attack (TIA), and cerebral infarction without residual deficits; Z85.118 Personal history of other malignant neoplasm of bronchus and lung
CPT/HCPCS: 0241U-QW; 36415; 80053; 80069; 85027; 86780; 87635; Q0162

== ENCOUNTER 2024-08-29 10:24 | Inpatient (IN) | payer OTHER ==
[2024-08-29 10:50] VITALS: BMI 20.9
[2024-08-29] MEDS ORDERED: NICOTINE POLACRILEX 2 MG GUM BUC PRN (11:08)
[2024-08-29] MEDS ORDERED: LOPERAMIDE HCL 2 MG CAPSULE PO PRN (11:08)
[2024-08-29] MEDS ORDERED: BENZONATATE 200 MG CAPSULE PO PRN (11:08)
[2024-08-29] MEDS ORDERED: DOCUSATE SODIUM 100 MG CAPSULE (FP) PO PRN (11:08)
[2024-08-29] MEDS ORDERED: guaiFENesin 600 MG TABLET.ER (FP) PO PRN (11:08)
[2024-08-29] MEDS ORDERED: NALOXONE (NARCAN) HCL 4 MG/0.1 ML SPRAY NS PRN (11:08)
[2024-08-29] MEDS ORDERED: MAGNESIUM HYDROX 2400MG/30ML ORAL SUSPENSION 30 ML CUP PO PRN (11:08)
[2024-08-29] MEDS ORDERED: MAG HYDROX/AL HYDROX/SIMETH 30 ML UNIT-DOSE CUP PO PRN (11:08)
[2024-08-29] MEDS ORDERED: BISACODYL 5 MG TABLET.DR (FP) PO PRN (11:08)
[2024-08-29] MEDS ORDERED: POLYETHYLENE GLYCOL (HEALTHYLAX) 3350 17 GM PACKET PO PRN (11:08)
[2024-08-29] MEDS ORDERED: NICOTINE POLACRILEX 2 MG LOZENGE BC PRN (11:08)
[2024-08-29] MEDS: ACETAMINOPHEN 325 MG TABLET (FP) PO PRN (17:18)
[2024-08-29] MEDS ORDERED: ALBUTEROL SO4 HFA INHALER IH PRN (17:42)
[2024-08-29] MEDS: LOSARTAN POTASSIUM 25 MG TABLET PO SCH (18:10)
[2024-08-29] MEDS: CLOPIDOGREL BISULFATE 75 MG TABLET (FP) PO SCH (18:10)
[2024-08-29] MEDS: ASPIRIN COATED 81 MG TABLET.EC PO SCH (18:17)
[2024-08-29] MEDS: ATORVASTATIN CA 80 MG TABLET (FP) PO SCH (21:33)
[2024-08-29] MEDS: GABAPENTIN 100 MG CAPSULE PO SCH (21:33)
[2024-08-29] MEDS: MELATONIN 5 MG TABLETS PO SCH (21:33)
[2024-08-29] MEDS: CARVEDILOL 25 MG TABLET (FP) PO SCH (21:33)
[2024-08-29] MEDS: THIAMINE 100 MG TABLET PO SCH (21:33)
[2024-08-30] MEDS: PRENATAL VITAMINS W/ FOLIC ACID TABLET (FP) PO SCH (10:12)
[2024-08-30] MEDS: HYDROCHLOROTHIAZIDE 25 MG TABLET (FP) PO SCH (10:12)
[2024-08-30 10:13] LABS: HEMATOCRIT 32.4 % (35.4-49); HEMOGLOBIN 10.5 GM/dL (11.7-16.9); MCH 23.6 pg (25.7-33.7); MCHC 32.5 g/dl (32.0-35.9); MEAN CELL VOLUME 72.6 fl (80-96); MEAN PLT VOLUME 7.4 fl (7.5-11.1); PLATELET COUNT 197 10^3/uL (134-434); RBC 4.46 M/mm3 (4.00-5.60); RDW 18.3 % (11.9-15.9); WHITE BLOOD COUNT 7.3 K/mm3 (4.0-10.0)
[2024-08-30 11:24] LABS: ALBUMIN 2.5 g/dl (3.4-5.0); BLOOD UREA NITROGEN 17.6 mg/dL (7-18); CALCIUM 7.9 mg/dL (8.5-10.1)
[2024-08-30 11:27] LABS: CREATININE 1.2 mg/dL (0.55-1.3)
[2024-08-30 11:29] LABS: BILIRUBIN,TOTAL 1.1 mg/dL (0.2-1)
[2024-08-30] MEDS: POTASSIUM CHLORIDE ORAL LIQUID 20 MEQ/15 ML PO ONE (19:21)
[2024-08-30 20:13] LABS: EPI CELLS 3 /uL (0-25.1); HYALINE CASTS 0 /uL (0-3.1); URINE APPEARANCE CLEAR; URINE BACTERIA 2 /uL (0-1359); URINE BILIRUBIN NEGATIVE (NEGATIVE); URINE COLOR YELLOW; URINE GLUCOSE (UA) NEGATIVE (NEGATIVE); URINE KETONE NEGATIVE (NEGATIVE); URINE LEUK ESTERASE NEGATIVE (NEGATIVE); URINE NITRITE NEGATIVE (NEGATIVE); URINE PROTEIN 1+ (NEGATIVE); URINE RBC 6 /uL (0-23.9); URINE WBC 6 /uL (0-25.8)
[2024-08-31 10:20] LABS: POTASSIUM 3.5 mmol/L (3.5-5.1)
[2024-08-31 10:23] LABS: BLOOD UREA NITROGEN 11.9 mg/dL (7-18); CALCIUM 8.3 mg/dL (8.5-10.1)
[2024-08-31 10:27] LABS: CREATININE 1.2 mg/dL (0.55-1.3)
[2024-09-01] MEDS ORDERED: ONDANSETRON *ODT* 4 MG TABLET SL PRN (09:38)
[2024-09-01] MEDS: ONDANSETRON *ODT* 4 MG TABLET SL PRN (11:26)
[2024-09-01] MEDS ORDERED: MAG HYDROX/AL HYDROX/SIMETH 30 ML UNIT-DOSE CUP PO PRN (15:10)
[2024-09-01] MEDS ORDERED: DICYCLOMINE HCL 10 MG CAPSULE PO PRN (15:10)
[2024-09-01] MEDS: TRIMETHOBENZAMIDE HCL 200MG/2ML INJ IM ONE (15:56)
[2024-09-03] MEDS: FERROUS SO4 325 MG TABLET (FP) PO SCH (10:29)
[2024-09-03 12:08] LABS: BASO % 0.3 % (0-2.0); EOS % 3.1 % (0-4.5); HEMATOCRIT 31.6 % (35.4-49); HEMOGLOBIN 10.1 GM/dL (11.7-16.9); LYMPH % 21.9 % (8-40); MCH 23.6 pg (25.7-33.7); MCHC 31.9 g/dl (32.0-35.9); MEAN CELL VOLUME 73.9 fl (80-96); MEAN PLT VOLUME 7.4 fl (7.5-11.1); MONO % 9.7 % (3.8-10.2); PLATELET COUNT 225 10^3/uL (134-434); RDW 18.8 % (11.9-15.9)
[2024-09-03 12:17] LABS: IRON SERUM 43 ug/dL (50-175)
[2024-09-03 12:19] LABS: TOTAL IRON BINDING CAPACITY 217 ug/dL (250-450)
[2024-09-05] MEDS: BENZOCAINE/MENTHOL (CHLORASEPTIC ) LOZENGE MM PRN (20:15)
[2024-09-08 12:28] LABS: RBC 4.27 M/mm3 (4.00-5.60)
[2024-09-09] MEDS: TAMSULOSIN HCL 0.4 MG CAP PO SCH (12:18)
[2024-09-09] MEDS: GABAPENTIN 300 MG CAPSULE PO SCH (13:50)
[2024-09-11 20:51] VITALS: RESP 16
[2024-09-12 09:07] VITALS: BP 118/74; PULSE 70; TEMP 97.7
== END 2024-09-12 09:08 | disposition home or self-care (01) | DRG 895 ==
LOC: YASAS 10:24 → Y3NR 11:44 → Y3E 08-31 08:58
PROVIDERS: ADMIT Psychiatry & Neurology Pain Medicine; ATTEND Psychiatry & Neurology Pain Medicine
PROC: HZ42ZZZ Group Counseling for Substance Abuse Treatment, Cognitive-Behavioral (ICD-10-PCS; principal; 2024-08-29)
DX: F14.20 Cocaine dependence, uncomplicated (principal); F10.20 Alcohol dependence, uncomplicated; F17.210 Nicotine dependence, cigarettes, uncomplicated; D50.9 Iron deficiency anemia, unspecified; I11.0 Hypertensive heart disease with heart failure; I50.9 Heart failure, unspecified; I25.2 Old myocardial infarction; E11.42 Type 2 diabetes mellitus with diabetic polyneuropathy; Z79.84 Long term (current) use of oral hypoglycemic drugs; N40.0 Benign prostatic hyperplasia without lower urinary tract symptoms; Z86.73 Personal history of transient ischemic attack (TIA), and cerebral infarction without residual deficits; Z86.79 Personal history of other diseases of the circulatory system; Z85.118 Personal history of other malignant neoplasm of bronchus and lung
CPT/HCPCS: 36415; 80048; 80053; 80305; 80307; 81003; 83540; 83550; 85025; 85027; 86780; 87811; 93005; 93010; Q0162

== ENCOUNTER 2025-02-02 09:57 | Inpatient (IN) | payer OTHER ==
[2025-02-02 10:26] VITALS: BMI 21.2
[2025-02-02] MEDS ORDERED: IBUPROFEN 600 MG TABLET (FP) PO PRN (10:40)
[2025-02-02] MEDS ORDERED: BENZONATATE 200 MG CAPSULE PO PRN (10:40)
[2025-02-02] MEDS ORDERED: NALOXONE (NARCAN) HCL 4 MG/0.1 ML SPRAY NS PRN (10:40)
[2025-02-02] MEDS ORDERED: NICOTINE POLACRILEX 2 MG LOZENGE BC PRN (10:40)
[2025-02-02] MEDS ORDERED: MAGNESIUM HYDROX 2400MG/30ML ORAL SUSPENSION 30 ML CUP PO PRN (10:40)
[2025-02-02] MEDS ORDERED: POLYETHYLENE GLYCOL (HEALTHYLAX) 3350 17 GM PACKET PO PRN (10:40)
[2025-02-02] MEDS ORDERED: IBUPROFEN 400 MG TABLET (FP) PO PRN (10:40)
[2025-02-02] MEDS ORDERED: LOPERAMIDE HCL 2 MG CAPSULE PO PRN (10:40)
[2025-02-02] MEDS ORDERED: BENZOCAINE/MENTHOL (CHLORASEPTIC ) LOZENGE MM PRN (10:40)
[2025-02-02] MEDS ORDERED: NICOTINE POLACRILEX 2 MG GUM BUC PRN (10:40)
[2025-02-02] MEDS ORDERED: MAG HYDROX/AL HYDROX/SIMETH 30 ML UNIT-DOSE CUP PO PRN (10:40)
[2025-02-02] MEDS ORDERED: guaiFENesin 600 MG TABLET.ER (FP) PO PRN (10:40)
[2025-02-02] MEDS ORDERED: ALBUTEROL SO4 HFA INHALER IH PRN (12:12)
[2025-02-02] MEDS: INSULIN ASPART SLIDING SCALE (NOVOLOG) 1 VIAL SQ SCH (16:50)
[2025-02-02 20:40] LABS: URINE APPEARANCE CLEAR; URINE BILIRUBIN NEGATIVE (NEGATIVE); URINE COLOR YELLOW; URINE GLUCOSE (UA) NEGATIVE (NEGATIVE); URINE KETONE NEGATIVE (NEGATIVE); URINE LEUK ESTERASE NEGATIVE (NEGATIVE); URINE NITRITE NEGATIVE (NEGATIVE); URINE PROTEIN TRACE (NEGATIVE); URINE UROBILINOGEN 1.0 mg/dL (0.2-1.0)
[2025-02-02] MEDS: ATORVASTATIN CA 80 MG TABLET (FP) PO SCH (21:35)
[2025-02-02] MEDS: THIAMINE 100 MG TABLET PO SCH (21:36)
[2025-02-02] MEDS: MELATONIN 5 MG TABLETS PO SCH (21:36)
[2025-02-02] MEDS: GABAPENTIN 300 MG CAPSULE PO SCH (21:36)
[2025-02-02] MEDS: CARVEDILOL 25 MG TABLET (FP) PO SCH (21:36)
[2025-02-03] MEDS: TAMSULOSIN HCL 0.4 MG CAP PO SCH (08:01)
[2025-02-03] MEDS: FERROUS SO4 325 MG TABLET (FP) PO SCH (10:24)
[2025-02-03] MEDS: PRENATAL VITAMINS W/ FOLIC ACID TABLET (FP) PO SCH (10:24)
[2025-02-03] MEDS: ASPIRIN COATED 81 MG TABLET.EC PO SCH (10:25)
[2025-02-03] MEDS: CLOPIDOGREL BISULFATE 75 MG TABLET (FP) PO SCH (10:26)
[2025-02-03 11:38] LABS: MCHC 29.0 g/dl (32.3-36.5); MEAN CELL VOLUME 86.8 fl (79.0-92.2); MEAN PLT VOLUME 10.7 fl (9.4-12.4); RDW 16.3 % (12.2-16.1)
[2025-02-03 14:49] LABS: GLUCOSE,RANDOM 120.0 mg/dL (74-106)
[2025-02-03 14:50] LABS: TOT PROT 7.1 g/dl (6.4-8.2)
[2025-02-03 14:51] LABS: CO2 25.0 mmol/L (21-32)
[2025-02-03 14:52] LABS: ALK PHOS 104.0 U/L (40-150)
[2025-02-03 14:55] LABS: CREATININE 1.2 mg/dL (0.55-1.3); SGOT/AST 15.0 U/L (5-34); SGPT/ALT 18.0 U/L (0-55)
[2025-02-06] MEDS ORDERED: INSULIN (NOVOLOG) ASPART 100 UNITS/ML 10ML VIAL SQ ONE (16:38)
[2025-02-08] MEDS ORDERED: INSULIN (NOVOLOG) ASPART 100 UNITS/ML 10ML VIAL SQ ONE (16:29)
[2025-02-09] MEDS: BACLOFEN 10 MG TABLET (FP) PO SCH (21:41)
[2025-02-10] MEDS: ACETAMINOPHEN 325 MG TABLET (FP) PO PRN (21:14)
[2025-02-12] MEDS ORDERED: hydrOXYzine PAMOATE 25 MG CAPSULE (FP) PO PRN (08:12)
[2025-02-15] MEDS ORDERED: ATORVASTATIN CA 40 MG TABLET (FP) ONE (20:16)
[2025-02-16] MEDS ORDERED: INSULIN (NOVOLOG) ASPART 100 UNITS/ML 10ML VIAL SQ ONE (17:00)
[2025-02-17 06:43] VITALS: TEMP 97.9
[2025-02-17 09:01] VITALS: BP 146/88; PULSE 80; RESP 16
== END 2025-02-17 09:24 | disposition home or self-care (01) | DRG 895 ==
LOC: YASAS 09:57 → Y3NR 12:02 → Y3E 02-03 10:58
PROVIDERS: ADMIT Neuromusculoskeletal Medicine & OMM; ATTEND Psychiatry & Neurology Pain Medicine
PROC: HZ42ZZZ Group Counseling for Substance Abuse Treatment, Cognitive-Behavioral (ICD-10-PCS; principal; 2025-02-02)
DX: F14.20 Cocaine dependence, uncomplicated (principal); F17.210 Nicotine dependence, cigarettes, uncomplicated; F19.24 Other psychoactive substance dependence with psychoactive substance-induced mood disorder; E78.5 Hyperlipidemia, unspecified; E11.42 Type 2 diabetes mellitus with diabetic polyneuropathy; Z79.4 Long term (current) use of insulin; I25.10 Atherosclerotic heart disease of native coronary artery without angina pectoris; I11.0 Hypertensive heart disease with heart failure; I50.9 Heart failure, unspecified; I25.2 Old myocardial infarction; Z85.118 Personal history of other malignant neoplasm of bronchus and lung; Z86.73 Personal history of transient ischemic attack (TIA), and cerebral infarction without residual deficits
CPT/HCPCS: 36415; 80053; 81003; 82962; 85027; 86780; J0475